=== PATIENT | female | born 1995 | race Caucasian/White ===

== ENCOUNTER 2019-07-17 15:40 | Observation (INO) ==
[2019-07-17] MEDS ORDERED: Ringers Solution, Lactated 1,000 ML IVC ONE (16:39)
[2019-07-17] MEDS ORDERED: *HR* Promethazine 25 MG/ML VIAL IVP PRN (16:40)
[2019-07-17] MEDS ORDERED: Ondansetron 4 MG/2 ML VIAL IVP PRN (16:41)
[2019-07-17 17:44] LABS: Basophils % 0.2 %; Eosinophils % 0.4 %; Hematocrit 32.3 % (35.3-44.9); Hemoglobin 11.2 g/dL (11.5-15.4); Immature Granulocytes % 0.5 % (0-4); Lymphocytes # 2.1 K/mcL (0.6-4.6); Lymphocytes % 21.3 %; Mean Corpuscular HGB Conc 34.7 g/dL (31.6-35.5); Mean Corpuscular Hemoglobin 31.5 pg (28.0-33.3); Mean Platelet Volume 9.8 fL (9.4-12.4); Monocytes # 0.6 K/mcL (0.0-1.3); Monocytes % 6.2 %; Neutrophils # 7.2 K/mcL (1.6-8.9); Platelet Count 229 K/mcL (140-400); Red Blood Count 3.55 M/mcL (3.82-4.97); Red Cell Distribution Width 13.2 % (11.5-14.5); Segmented Neutrophils % 71.4 %
[2019-07-17 18:02] LABS: Alanine Aminotransferase 13 Units/L (7-52); Albumin/Globulin Ratio 1.4 (1.1-2.2); Alkaline Phosphatase 45 Units/L (34-104); Aspartate Amino Transferase 12 Units/L (13-39); BUN/Creatinine Ratio 24 (6-26); Bilirubin,Total 0.6 mg/dL (0.3-1.0); Blood Urea Nitrogen 12 mg/dL (6-20); Calcium 9.2 mg/dL (8.6-10.3); Carbon Dioxide 24 mEq/L (23-29); Chloride 101 mEq/L (98-107); Globulin 2.8 g/dL (2.4-3.5); Glucose 78 mg/dL (70-105); Osmolality,Calculated 279 (280-300); Potassium 3.7 mEq/L (3.5-5.1); Sodium 135 mEq/L (136-145); Total Protein 6.8 g/dL (6.4-8.9); eGFR For African Americans > 60 (> 60); eGFR For Non-African Americans > 60 (> 60)
[2019-07-17] MEDS ORDERED: Thiamine (B-1) 100 MG, Folic Acid 1 MG, MVI, adult with vitamin K 10 ML in 0.9 % Sodi... IVPB ONE (19:45)
[2019-07-17] MEDS ORDERED: D5% in 0.45% NACL w KCl 20 MEQ/1,000 ML MLS IVC SCH (19:45)
[2019-07-17] MEDS ORDERED: 1: Ringers Solution, Lactated 1,000 ML with Promethazine 50 MG 2: Ringers Solution, Lac IV SCH (20:00)
--- NOTE | 2019-07-18 01:19 | Discharge Summary ---
Date of Encounter: 07/18/19 Time of Encounter: 01:17 - Discharge Diagnosis (1) 20 weeks gestation of Priority: Primary Status: Acute (2) Hyperemesis Priority: Primary Status: Acute Comments: 20+2 weeks gestation presented for observation from the office. Patient saw Dr. Aldana in office today complained of severe nausea and emesis, unable to keep food down over the last several days, only with keeping minimal sips of water down. Patient stated Zofran was no longer effective. Reports movement, denies cramping or leaking of fluid. In triage rehydrate with 1 L LR fluid, and 1 500 mL of multivitamins, B6, and thiamine. Patient able to tolerate by mouth diet liquids, without emesis. Patient's declined any antinausea medications during this admission. Patient states she took one dissolvable Zofran prior to arrival, and that made her able to eat. Discharged home with diclegis prescription sent to home pharmacy via [facility] - Discharge Medications Prescriptions: Continued Ondansetron ODT [Zofran ODT] 4 mg SL Q6HR #28 tab.rapdis Home Medications: Ondansetron ODT [Zofran ODT] 4 mg SL Q6HR #28 tab.rapdis 06/19/19 [Rx] Allergies/Adverse Reactions: Allergy/AdvReac Type Severity Reaction Status Date / Time No Known Allergies Allergy Verified 06/19/19 17:47 Data Procedures and tests throughout hospitalization: Laboratory Tests 07/17/19 07/17/19 17:26 17:26 WBC 10.0 RBC 3.55 L Hgb 11.2 L Hct 32.3 L MCV 91.0 MCH 31.5 MCHC 34.7 RDW 13.2 Plt Count 229 MPV 9.8 Immature Gran % 0.5 Seg Neutrophils % 71.4 Lymphocytes % 21.3 Monocytes % 6.2 Eosinophils % 0.4 Basophils % 0.2 Neutrophils # 7.2 Lymphocytes # 2.1 Monocytes # 0.6 Eosinophils # 0.0 Basophils # 0.0 Sodium 135 L Potassium 3.7 Chloride 101 Carbon Dioxide 24 BUN 12 Creatinine 0.51 L Est GFR ( Amer) > 60 Est GFR (Non-Af Amer) > 60 BUN/Creatinine Ratio 24 Glucose 78 Calculated Osmolality 279 L Calcium 9.2 Total Bilirubin 0.6 AST 12 L ALT 13 Alkaline Phosphatase 45 Serum Total Protein 6.8 Albumin 4.0 Globulin 2.8 Albumin/Globulin Ratio 1.4 Labs on day of discharge: Labs from last 24 hours 07/17/19 07/17/19 17:26 17:26 WBC 10.0 RBC 3.55 L Hgb 11.2 L Hct 32.3 L MCV 91.0 MCH 31.5 MCHC 34.7 RDW 13.2 Plt Count 229 MPV 9.8 Immature Gran % 0.5 Seg Neutrophils % 71.4 Lymphocytes % 21.3 Monocytes % 6.2 Eosinophils % 0.4 Basophils % 0.2 Neutrophils # 7.2 Lymphocytes # 2.1 Monocytes # 0.6 Eosinophils # 0.0 Basophils # 0.0 Sodium 135 L Potassium 3.7 Chloride 101 Carbon Dioxide 24 BUN 12 Creatinine 0.51 L Est GFR ( Amer) > 60 Est GFR (Non-Af Amer) > 60 BUN/Creatinine Ratio 24 Glucose 78 Calculated Osmolality 279 L Calcium 9.2 Total Bilirubin 0.6 AST 12 L ALT 13 Alkaline Phosphatase 45 Serum Total Protein 6.8 Albumin 4.0 Globulin 2.8 Albumin/Globulin Ratio 1.4 Date of admission: 07/17/19 15:45 Primary care physician: PCP NONE Discharging clinician: Gretchen Ochoa Anticipated date of discharge: 07/18/19 - Patient Status Disposition: Home, Self-Care Condition: Good Functional capacity at discharge: independent ambulation Overall status at discharge: patient is progressing back to baseline - Discharge Instructions Follow Up With: NONE,PCP [Primary Care Provider] - - Diet and Activity Activity: resume usual activities as tolerated Diet: regular diet Hospital Course SHIPPING AND RECEIVING WEIGHER Reason for admission: other Discharge diagnosis: other Hospital course: Admitted for obs, IV hydration, by mouth challenge successful. Discharged Time Attestation: Total time spent providing and/or coordinating discharge services: Time Spent: Less than 30 minutes Exam - Constitutional Vitals: Temp Pulse Resp BP Pulse Ox 98.0 F 84 16 115/67 99 07/17/19 20:05 07/17/19 20:05 07/17/19 20:05 07/17/19 20:05 07/17/19 20:05 General appearance IM: A&O X 3 - Respiratory Respiratory exam: Present: CTAB - Cardiovascular Cardiovascular exam IM: Present: RRR - GI/Abdominal GI/Abdominal exam IM: soft
[2019-07-18 03:44] VITALS: BP 103/62
== END 2019-07-18 03:43 | disposition home or self-care (01) ==
LOC: 1NENUOBS
PROVIDERS: ADMIT Obstetrics & Gynecology; ATTEND Obstetrics & Gynecology

== ENCOUNTER → 2019-08-25 16:26 | Observation (INO) ==
[2019-08-25 12:36] LABS: Bilirubin,Urine Small (Negative); Blood,Urine Negative (Negative); Clarity,Urine Cloudy (Clear); Color,Urine Dark Yellow (Yellow); Glucose,Urine (UA) Normal (Normal); Ketones,Urine 15 mg/dL (Negative); Leukocyte Esterase,Urine Small (Negative); Nitrite,Urine Negative (Negative); Protein,Urine 30 mg/dL (Neg-Trace); Specific Gravity,Urine 1.026 (1.010-1.025); Urobilinogen,Urine Normal (Normal)
[2019-08-25 12:39] LABS: Bacteria,Urine Few per hpf (None-Few); RBC,Urine 0-3 per hpf (0-3); Squamous Epithelial Cell,Urine Many per lpf (None-Few)
[2019-08-25 12:49] LABS: Amphetamine Screen,Urine Negative ng/mL (Cutoff=1000); Barbiturate Screen,Urine Negative ng/mL (Cutoff=200); Benzodiazepines Screen,Urine Negative ng/mL (Cutoff=200); Cannabinoid Screen,Urine Positive ng/mL (Cutoff = 50); Cocaine Screen,Urine Negative ng/mL (Cutoff= 300); Opiate Screen,Urine Negative ng/mL (Cutoff=300); Phencyclidine Screen,Urine Negative ng/mL (Cutoff=25)
[2019-08-25 13:28] LABS: Basophils # 0.1 K/mcL (0.0-0.2); Basophils % 0.4 %; Eosinophils # 0.1 K/mcL (0.0-0.6); Eosinophils % 0.4 %; Hematocrit 34.1 % (35.3-44.9); Hemoglobin 12.3 g/dL (11.5-15.4); Immature Granulocytes % 1.9 % (0-4); Lymphocytes # 2.2 K/mcL (0.6-4.6); Lymphocytes % 17.4 %; Mean Corpuscular HGB Conc 36.1 g/dL (31.6-35.5); Mean Corpuscular Hemoglobin 32.4 pg (28.0-33.3); Mean Corpuscular Volume 89.7 fL (83.0-100.0); Monocytes # 0.9 K/mcL (0.0-1.3); Monocytes % 7.1 %; Neutrophils # 9.3 K/mcL (1.6-8.9); Platelet Count 265 K/mcL (140-400); Red Cell Distribution Width 12.6 % (11.5-14.5); Segmented Neutrophils % 72.8 %; White Blood Count 12.8 K/mcL (4.3-11.1)
[~2019-08-25 16:26] MED LIST: Ondansetron 4 MG/2 ML VIAL IVP PRN; Ondansetron 4 MG/2 ML VIAL ONE; Ringers Solution, Lactated 1,000 ML IVC ONE; Ringers Solution, Lactated 1,000 ML IVC SCH; Ringers Solution, Lactated 1,000 ML ONE
== END | disposition home or self-care (01) ==
LOC: 1NENULAB
PROVIDERS: ADMIT Advanced Practice Midwife; ATTEND Advanced Practice Midwife

== ENCOUNTER 2019-12-01 08:06 | Inpatient (IN) ==
[2019-12-01] MEDS ORDERED: Metoclopramide 10 MG/2 ML VIAL IVP PRN (08:27)
[2019-12-01] MEDS ORDERED: Famotidine 20 MG/2 ML VIAL IVP PRN (08:27)
[2019-12-01] MEDS ORDERED: Ondansetron 4 MG/2 ML VIAL IVP PRN (08:27)
[2019-12-01] MEDS ORDERED: Azithromycin 500 MG in 0.9 % Sodium Chloride 250 ML IVPB PRN (08:27)
[2019-12-01] MEDS ORDERED: *HR* FentaNYL (PF) 100 MCG/2 ML VIAL IVP PRN (08:27)
[2019-12-01] MEDS ORDERED: Lidocaine 1% 20 ML MDV INFILT PRN (08:27)
[2019-12-01] MEDS ORDERED: miSOPROStoL 25 MCG TABLET VG PRN (08:27)
[2019-12-01] MEDS ORDERED: Naloxone 0.4 MG/ML INJ IVP PRN (08:27)
[2019-12-01] MEDS ORDERED: Ringers Solution, Lactated 1,000 ML IVC SCH (08:30)
[2019-12-01 09:06] LABS: Basophils % 0.3 %; Eosinophils # 0.1 K/mcL (0.0-0.6); Eosinophils % 0.8 %; Hemoglobin 11.3 g/dL (11.5-15.4); Immature Granulocytes % 0.7 % (0-4); Lymphocytes # 2.4 K/mcL (0.6-4.6); Lymphocytes % 18.7 %; Mean Corpuscular HGB Conc 35.3 g/dL (31.6-35.5); Mean Corpuscular Hemoglobin 31.8 pg (28.0-33.3); Mean Corpuscular Volume 90.1 fL (83.0-100.0); Mean Platelet Volume 10.7 fL (9.4-12.4); Monocytes # 0.8 K/mcL (0.0-1.3); Monocytes % 6.4 %; Neutrophils # 9.3 K/mcL (1.6-8.9); Platelet Count 221 K/mcL (140-400); Red Blood Count 3.55 M/mcL (3.82-4.97); Red Cell Distribution Width 12.9 % (11.5-14.5); Segmented Neutrophils % 73.1 %; White Blood Count 12.8 K/mcL (4.3-11.1)
[2019-12-01 10:40] LABS: Amphetamine Screen,Urine Negative ng/mL (Cutoff=1000); Barbiturate Screen,Urine Negative ng/mL (Cutoff=200)
[2019-12-01 10:41] LABS: Benzodiazepines Screen,Urine Negative ng/mL (Cutoff=300); Cannabinoid Screen,Urine Negative ng/mL (Cutoff = 50); Cocaine Screen,Urine Negative ng/mL (Cutoff= 300); Opiate Screen,Urine Negative ng/mL (Cutoff=300); Phencyclidine Screen,Urine Negative ng/mL (Cutoff=25)
[2019-12-01] MEDS ORDERED: Bupivacaine-MPF 0.25% 10 ML VIAL EP ONE (11:37)
[2019-12-01] MEDS ORDERED: Ropivacaine/PF 0.2% 20 ML VIAL EP ONE (11:37)
[2019-12-01] MEDS ORDERED: *HR* FentaNYL (PF) 100 MCG/2 ML VIAL EP ONE (11:37)
[2019-12-01] MEDS ORDERED: EPHEDrine 50 MG/ML VIAL IVP PRN ×2 (11:37→11:56)
[2019-12-01] MEDS ORDERED: Epidural Premix (fent/bupiv) 110 ML EP SCH (12:00)
[2019-12-01] MEDS ORDERED: *HR* FentaNYL (PF) 100 MCG/2 ML VIAL ONE (12:53)
[2019-12-01] MEDS ORDERED: Ropivacaine/PF 0.2% 20 ML VIAL ONE (12:54)
[2019-12-01] MEDS ORDERED: Oxytocin 20 units/ LR 1000 mL 20 UNIT/1,000 ML BAG IVC SCH ×2 (15:45→21:47)
[2019-12-01] MEDS ORDERED: Acetaminophen 325 MG TABLET PO PRN (21:47)
[2019-12-01] MEDS ORDERED: Ibuprofen 600 MG TABLET PO PRN (21:47)
[2019-12-02 06:54] LABS: Basophils % 0.3 %; Eosinophils # 0.1 K/mcL (0.0-0.6); Eosinophils % 0.6 %; Hematocrit 31.5 % (35.3-44.9); Hemoglobin 11.3 g/dL (11.5-15.4); Immature Granulocytes % 0.6 % (0-4); Lymphocytes # 2.3 K/mcL (0.6-4.6); Lymphocytes % 16.2 %; Mean Corpuscular HGB Conc 35.9 g/dL (31.6-35.5); Mean Corpuscular Volume 89.2 fL (83.0-100.0); Mean Platelet Volume 10.6 fL (9.4-12.4); Monocytes % 6.8 %; Neutrophils # 10.6 K/mcL (1.6-8.9); Platelet Count 202 K/mcL (140-400); Red Blood Count 3.53 M/mcL (3.82-4.97); Red Cell Distribution Width 12.8 % (11.5-14.5); Segmented Neutrophils % 75.5 %; White Blood Count 14.1 K/mcL (4.3-11.1)
[2019-12-02] MEDS ORDERED: Prenatal Vit/FA 1 EACH TABLET PO SCH (09:00)
[2019-12-02 16:18] VITALS: BP 113/75
== END 2019-12-02 21:30 | disposition home or self-care (01) | DRG 560 ==
LOC: 1NENULAB 08:06 → 1NENUOBS 21:45
PROVIDERS: ADMIT Obstetrics & Gynecology; ATTEND Obstetrics & Gynecology